=== PATIENT | male | born 1950 | race Caucasian/White ===

== ENCOUNTER 2016-12-08 01:07 | Emergency (ER) | payer OTHER, MEDICARE ==
[2016-12-08] MEDS ORDERED: Sodium Chloride 0.9% 5 ML Syringe FLUSH PRN (02:05)
[2016-12-08] MEDS ORDERED: Ibuprofen 600 MG Tab PO ONE (02:22)
--- NOTE | 2016-12-08 02:23 | EDM.PDOC ---
ED HPI GENERAL MEDICAL PROBLEM - General Chief Complaint: Abdominal Pain Stated Complaint: fever, abd pain Time Seen by Provider: 12/08/16 02:00 Source of Information: Reports: Patient History Limitations: Reports: No limitations - History of Present Illness INITIAL COMMENTS - FREE TEXT/NARRATIVE: 66 YO WM with PMH of colon resection 5 week for colon CA with post op complication of intestinal infection requiring 18 days in hospital. Pt reports discharged from hospital 10 days ago and began having pain in abdomen again 5 days ago. Pt was seen by surgery yesterday and was evaluated without any radiographic intervention. Pt developed fever/chills tonight with continued abdominal pain prompting ER evaluation. Pt reports his pain is suprapubic but denies any dysuria, urgency or frequency. Pt denies any cough or congestion or difficulty in breathing. Onset Date: 12/03/16 Duration: Day(s): (5) Location: Reports: abdomen Quality: Reports: Ache Severity: moderate Improves with: Reports: None Worsens with: Reports: None Associated Symptoms: Reports: fever/chills, nausea/vomiting, weakness Treatments [employer]: Reports: Acetaminophen Abdomen Pain Score (Numeric/FACES): 1 - Related Data Allergies Allergy/AdvReac Type Severity Reaction Status Date / Time Penicillins Allergy Other Verified 10/19/16 10:12 tape Allergy Rash Uncoded 12/08/16 01:19 Home Meds: Home Meds Albuterol [Ventolin HFA] 2 puff INH Q4H PRN 12/08/16 [History] Cyclobenzaprine [Flexeril] 10 mg PO TID PRN 12/08/16 [History] Ondansetron [Zofran ODT] 4 mg SL TID PRN 12/08/16 [History] SUMAtriptan [Imitrex] 50 mg PO ONETIME PRN 12/08/16 [History] ED ROS GENERAL - Review of Systems Review Of Systems: See Below Constitutional: Reports: fever, chills, malaise, weakness HEENT: Reports: No symptoms Respiratory: Reports: No Symptoms Cardiovascular: Reports: No symptoms Endocrine: Reports: no symptoms GI/Abdominal: Reports: Abdominal pain, Nausea, Vomiting : Reports: no symptoms Musculoskeletal: Reports: no symptoms Skin: Reports: no symptoms Neurological: Reports: No Symptoms Psychiatric: Reports: No symptoms Hematologic/Lymphatic: Reports: no symptoms Immunologic: Reports: no symptoms ED EXAM, GI/ABD - Physical Exam Exam: See Below Exam Limited By: No limitations General Appearance: alert, WD/WN, no apparent distress Ears: normal external exam, normal canal, hearing grossly normal, normal TMs Nose: normal inspection, normal mucosa, no blood Throat/Mouth: Normal inspection, Normal lips, Normal teeth, Normal gums, Normal oropharynx, Normal voice, No airway compromise Head: atraumatic, normocephalic Neck: normal inspection, supple, non-tender, full range of motion Respiratory/Chest: no respiratory distress, lungs clear, normal breath sounds, no accessory muscle use, chest non-tender Cardiovascular: normal peripheral pulses, regular rate, rhythm, no edema, no gallop, no JVD, no murmur, no rub GI/Abdominal: Soft, No Organomegaly, No Distention, No Abnormal Bruit, No Mass, Tenderness (suprapubic) Back Exam: normal inspection, full range of motion, NT Extremities: normal inspection, normal range of motion, non-tender, normal capillary refill, no pedal edema Neurological: alert, oriented, CN II-XII intact, normal cognition, normal gait, normal reflexes, no motor/sensory deficits Psychiatric: normal affect, normal mood Skin Exam: Warm, Dry, Intact, Normal color, No rash Lymphatic: no adenopathy Course - Vital Signs Last Recorded V/S: Last Vital Signs Temp 37.9 C 12/08/16 03:29 Pulse 93 12/08/16 04:15 Resp 22 H 12/08/16 04:15 BP 118/39 L 12/08/16 04:15 Pulse Ox 94 L 12/08/16 04:15 - Orders/Labs/Meds Orders: Active Orders 24 hr Category Date Time Status Abdomen Pelvis w Cont [CT] Stat Exams 12/08/16 02:16 Ordered Abdomen w wo Cont [CT] Stat Exams 12/08/16 01:27 Stop Req Chest 2V [CR] Stat Exams 12/08/16 02:22 Taken CULTURE BLOOD [BC] Stat Lab 12/08/16 01:35 Received CULTURE BLOOD [BC] Stat Lab 12/08/16 02:53 Received Sodium Chloride 0.9% [Normal Saline] Med 12/08/16 03:00 Active 50 ml FLUSH ASDIRECTED Sodium Chloride 0.9% [Syrex Flush] Med 12/08/16 02:05 Active 5 ml FLUSH Q8HR PRN Blood Culture x2 Reflex Set [OM.PC] Stat Oth 12/08/16 02:22 Ordered Saline Lock Insert [OM.PC] Routine Ot 12/08/16 02:05 Ordered Medication Orders Sodium Chloride (Syrex Flush) 5 ml FLUSH Q8HR PRN PRN Reason: Keep Vein Open Sodium Chloride (Normal Saline) 50 ml FLUSH ASDIRECTED JOSE Last Admin: 12/08/16 03:13 Dose: 50 ml Labs: Laboratory Tests 12/08/16 12/08/16 12/08/16 Range/Units 01:30 01:30 02:05 WBC 26.6 H (5.0-10.0) 10^3/uL RBC 4.14 L (4.50-6.00) 10^6/uL Hgb 11.7 L (13.0-17.0) g/dL Hct 34.7 L (40.0-52.0) % MCV 83.8 (82.0-92.0) fL MCH 28.2 (27.0-31.0) pg MCHC 33.6 (32.0-36.0) g/dL RDW 13.5 (11.5-14.5) % Plt Count 467 H (150-300) 10^3/uL MPV 7.8 (7.4-10.4) fL Sodium 133 L (136-145) mmol/L Potassium 3.7 (3.3-5.3) mmol/L Chloride 98 (98-115) mmol/L Carbon Dioxide 27.1 (21.0-32.0) mmol/L BUN 14 (6-25) mg/dL Creatinine 0.87 (0.51-1.17) mg/dL Est Cr Clr Drug Dosing 88.78 mL/min Estimated GFR (MDRD) > 60 mL/min Glucose 141 H (70-110) mg/dL Calcium 8.1 L (8.7-10.3) mg/dL Total Bilirubin 0.4 (0.2-1.0) mg/dL AST 26 (15-37) U/L ALT 35 (12-78) U/L Alkaline Phosphatase 94 (46-116) IU/L Total Protein 6.9 (6.4-8.2) g/dL Albumin 2.62 L (3.00-4.80) g/dL Lipase 172 (73-393) U/L Specimen Type Urincc Urine Color Dark yellow H (YELLOW) Urine Appearance Clear (CLEAR) Urine pH 5.5 (5.0-9.0) Ur Specific [place] 1.025 (1.005-1.030) Urine Protein Trace H (NEGATIVE) mg/dL Urine Glucose (UA) Negative (NEGATIVE) mg/dL Urine Ketones Trace H (NEGATIVE) mg/dL Urine Occult Blood Moderate H (NEGATIVE) Urine Nitrite Negative (NEGATIVE) Urine Bilirubin Negative (NEGATIVE) Urine Urobilinogen 0.2 (0.2-1.0) E.U./dL Ur Leukocyte Esterase Negative (NEGATIVE) Urine RBC 0-5 /HPF Urine WBC Not seen /HPF Ur Epithelial Cells Rare /LPF Urine Bacteria Not seen (NONE TO FEW) /HPF Urine Mucus Rare H (NEGATIVE) /LPF Meds: Medications Generic Name Dose Route Start Last Admin Trade Name Freq PRN Reason Stop Dose Admin Sodium Chloride 5 ml 12/08/16 02:05 Syrex Flush FLUSH Q8HR PRN Keep Vein Open Sodium Chloride 50 ml 12/08/16 03:00 12/08/16 03:13 Normal Saline FLUSH 50 ml ASDIRECTED JOSE Administration Discontinued Medications Generic Name Dose Route Start Last Admin Trade Name Freq PRN Reason Stop Dose Admin Sodium Chloride 1,000 mls @ 999 mls/hr 12/08/16 02:17 12/08/16 02:41 Normal Saline IV 12/08/16 03:17 999 mls/hr .BOLUS ONE Administration Ibuprofen 600 mg 12/08/16 02:22 12/08/16 03:27 Motrin PO 12/08/16 02:23 Not Given ONETIME ONE Ibuprofen 600 mg 12/08/16 02:47 12/08/16 02:48 Motrin PO 12/08/16 02:48 600 mg ONETIME ONE Administration Ibuprofen Confirm 12/08/16 02:47 12/08/16 03:27 Motrin Administered 12/08/16 02:48 Not Given Dose 600 mg .ROUTE .STK-MED ONE Iopamidol 75 ml 12/08/16 02:46 12/08/16 03:13 Isovue-300 (61%) IV 12/08/16 02:47 75 ml ONETIME ONE Administration Ondansetron HCl 4 mg 12/08/16 02:32 12/08/16 02:41 Zofran IVPUSH 12/08/16 02:33 4 mg ONETIME ONE Administration - Radiology Interpretation Free Text/Narrative:: CXR- NAD CT ABD/Pelvis- mucosal thickening of small bowel and remainder of larger intestine. LLQ fluid collection 1.9x2.8cm possible abscess Departure - Departure Time of Disposition: 04:41 Disposition: DC/Tfer to Acute Hospital 02 Condition: fair Clinical Impression: Colitis, Abdominal abscess - Discharge Information Forms: ED Department Discharge, Interfacility Transfer EMTALA - My Orders Last 24 Hours: My Active Orders 12/08/16 01:27 Abdomen w wo Cont [CT] Stat 12/08/16 01:35 CULTURE BLOOD [BC] Stat 12/08/16 02:05 Sodium Chloride 0.9% [Syrex Flush] 5 ml FLUSH Q8HR PRN Saline Lock Insert [OM.PC] Routine 12/08/16 02:16 Abdomen Pelvis w Cont [CT] Stat 12/08/16 02:22 Chest 2V [CR] Stat Blood Culture x2 Reflex Set [OM.PC] Stat 12/08/16 02:53 CULTURE BLOOD [BC] Stat 12/08/16 03:00 Sodium Chloride 0.9% [Normal Saline] 50 ml FLUSH ASDIRECTED - Assessment/Plan Last 24 Hours: My Active Orders 12/08/16 01:27 Abdomen w wo Cont [CT] Stat 12/08/16 01:35 CULTURE BLOOD [BC] Stat 12/08/16 02:05 Sodium Chloride 0.9% [Syrex Flush] 5 ml FLUSH Q8HR PRN Saline Lock Insert [OM.PC] Routine 12/08/16 02:16 Abdomen Pelvis w Cont [CT] Stat 12/08/16 02:22 Chest 2V [CR] Stat Blood Culture x2 Reflex Set [OM.PC] Stat 12/08/16 02:53 CULTURE BLOOD [BC] Stat 12/08/16 03:00 Sodium Chloride 0.9% [Normal Saline] 50 ml FLUSH ASDIRECTED Assessment:: 1. suprapubic abdominal pain 2. fever 3. leukocytosis 4. s/p colon resection and post surgical abscess from leaking anastamosis Plan: 1. transfer to [facility]- Dr Gasevic accepting 2. Flagyl 500mg IV 3. Levaquin 500mg IV 4. supportive care 5. NS @125/hr
[2016-12-08] MEDS ORDERED: Ondansetron 4 MG/2 ML SDV IVPUSH ONE (02:32)
[2016-12-08 02:38] LABS: CHLORIDE,CL 98 mmol/L (98-115); SODIUM,NA 133 mmol/L (136-145)
[2016-12-08] MEDS: Sodium Chloride 0.9% 1,000 ML IV ONE ×2 (02:41→04:47)
[2016-12-08] MEDS ORDERED: Iopamidol 612 MG/ML 75 ML Bottle IV ONE (02:46)
[2016-12-08] MEDS ORDERED: Ibuprofen 200 MG Tab PO ONE (02:47)
[2016-12-08] MEDS ORDERED: Ibuprofen 200 MG Tab ONE (02:47)
[2016-12-08] MEDS ORDERED: Sodium Chloride 0.9% 50 ML SDV FLUSH SCH (03:00)
[2016-12-08 04:27] VITALS: BP 118/39
[2016-12-08] MEDS ORDERED: Sodium Chloride 0.9% 1,000 ML ONE (04:39)
[2016-12-08] MEDS ORDERED: Levofloxacin/Dextrose 5%-Water 100 ML IV ONE (04:39)
[2016-12-08] MEDS ORDERED: Levofloxacin/Dextrose 5%-Water 500 MG in Premix Bag 1 BAG IV ONE (04:43)
[2016-12-08] MEDS ORDERED: metroNIDAZOLE/Normal Saline 500 MG in Premix Bag 1 BAG IV ONE (04:43)
== END 2016-12-08 05:10 ==
LOC: KA.ED 01:07
DX: K52.9 Noninfective gastroenteritis and colitis, unspecified (principal); L02.211 Cutaneous abscess of abdominal wall; Z88.0 Allergy status to penicillin; Z91.09 Other allergy status, other than to drugs and biological substances
CPT/HCPCS: 36415; 71020; 74177; 80053; 81001; 83690; 85027; 87040; 96361; 96365; 96375; 99285; A9270; J1956; J2405; J7030; Q9967

== ENCOUNTER 2024-11-12 07:03 | Day surgery (SDC) | payer MEDICARE, BC ==
[~2024-11-12 07:03] MED LIST: Sodium Chloride 0.9% 10 ML Syringe FLUSH PRN
[2024-11-12] MEDS: Lactated Ringers 1,000 ML IV SCH (07:27)
[2024-11-12] MEDS ORDERED: Midazolam 1 MG/ML 2 ML SDV ONE (07:53)
[2024-11-12] MEDS ORDERED: Propofol 200 MG/20 ML SDV ONE (07:53)
[2024-11-12 10:24] VITALS: BP 136/69; PULSE 60
== END 2024-11-12 10:33 | disposition home or self-care (01) ==
LOC: KA.SDS 07:03
PROVIDERS: ATTEND Family Medicine
DX: Z12.11 Encounter for screening for malignant neoplasm of colon (principal); K57.30 Diverticulosis of large intestine without perforation or abscess without bleeding; K62.89 Other specified diseases of anus and rectum; D50.9 Iron deficiency anemia, unspecified; N18.31 Chronic kidney disease, stage 3a; E78.00 Pure hypercholesterolemia, unspecified; Z85.038 Personal history of other malignant neoplasm of large intestine; Z90.49 Acquired absence of other specified parts of digestive tract; Z79.82 Long term (current) use of aspirin; Z79.899 Other long term (current) drug therapy; Z88.0 Allergy status to penicillin; Z91.09 Other allergy status, other than to drugs and biological substances; Z87.891 Personal history of nicotine dependence
CPT/HCPCS: 00811; 99100; J2250; J2704; J7120